=== PATIENT | female | born 1995 | race Caucasian/White ===

== ENCOUNTER 2021-11-30 18:28 | Emergency (ER) | payer OTHER ==
--- NOTE | 2021-11-30 18:50 | NUR ---
CALLED TO TRIAGE, NO ANSWER
--- NOTE | 2021-11-30 20:19 | NUR ---
CALLED TO TRIAGE NO ANSWER.
== END 2021-11-30 20:19 | disposition left against medical advice (07) ==
LOC: MED 18:28
DX: Z53.21 Procedure and treatment not carried out due to patient leaving prior to being seen by health care provider (principal)

== ENCOUNTER 2021-12-18 19:19 | Emergency (ER) | payer OTHER ==
[~2021-12-18] VITALS: Ht 160 cm; Wt 93.9 kg
[2021-12-18 19:35] VITALS: BP 131/90
--- NOTE | 2021-12-18 19:40 | NUR ---
PATIENT TO LOBBY
--- NOTE | 2021-12-18 19:40 | NUR ---
JENNIFER Mitchell examined patient.
[2021-12-18] MEDS ORDERED: ACETAMINOPHEN 325 MG TAB PO ONE (19:45)
[2021-12-18] MEDS ORDERED: OFLO10SO16 OT ×2 (19:47→19:48)
[2021-12-18] MEDS ORDERED: ACET-8386 PO ×2 (19:47→19:48)
[2021-12-18] MEDS ORDERED: AZIT250T3 PO ×2 (19:47→19:48)
--- NOTE | 2021-12-18 20:11 | NUR ---
Note undone in EDM - 12/18/21 at 2013 by MEDANGIE Patient discharged with v/s stable. Written and verbal after care instructions given and explained. Patient alert, oriented and verbalized understanding of instructions. Ambulatory with steady gait. All questions addressed prior to discharge. ID band removed. Patient advised to follow up with PMD. Rx of hydrocodon acetaminophen 5-325, zithromac, and ofloxacin 10 ml given. Patient educated on indication of medication including possible reaction and side effects. Opportunity to ask questions provided and answered.
--- NOTE | 2021-12-18 20:11 | NUR ---
Patient discharged with v/s stable. Written and verbal after care instructions given and explained. Patient alert, oriented and verbalized understanding of instructions. Ambulatory with steady gait. All questions addressed prior to discharge. ID band removed. Patient advised to follow up with PMD. Rx of hydrocodon acetaminophen 5-325, zithromax, and ofloxacin 10 ml given. Patient educated on indication of medication including possible reaction and side effects. Opportunity to ask questions provided and answered.
[2021-12-18 20:12] VITALS: BP 131/90
== END 2021-12-18 20:11 | disposition home or self-care (01) ==
LOC: MED 19:19
DX: H66.91 Otitis media, unspecified, right ear (principal); Z88.0 Allergy status to penicillin
CPT/HCPCS: 99283

== ENCOUNTER 2022-02-09 07:54 | Emergency (ER) | payer OTHER ==
[~2022-02-09] VITALS: Ht 160 cm; Wt 93.0 kg
[~2022-02-09 07:54] MED LIST: ACET-8386 PO; AZIT250T3 PO; OFLO10SO16 OT
[2022-02-09 08:03] VITALS: BP 158/95
--- NOTE | 2022-02-09 08:07 | NUR ---
Patient ambulated with steady gait to bed 5.
--- NOTE | 2022-02-09 08:14 | NUR ---
26 y/o F BIB self from home c/o chest pain since 0200. Patient A&Ox4, ambulatory, states acute onset; states smoking marijuana prior to arrival. Reports 8/10, sharp/constant, non-radiating pain. +Tenderness to sub sternal region. Worsens with inspiration. Denies medications prior to arrival. Reports sick household members (children with congestion). Denies SOB, headache, leg pain, nausea, vomiting, diarrhea, fever, chills. Bed locked in lowest position, side rails x 1. PMH/Sx/Meds: von willebrand disease A: PCN
--- NOTE | 2022-02-09 08:14 | NUR ---
Dr. Amor is evaluating pt at bedside
[2022-02-09] MEDS ORDERED: KETOROLAC 30 MG/ML VIAL IM ONE (08:20)
[2022-02-09] MEDS ORDERED: NAPR-54 PO (09:02)
--- NOTE | 2022-02-09 09:03 | NUR ---
Pt reports + relief to pain; 5/10 at this time.
--- NOTE | 2022-02-09 09:06 | NUR ---
Patient discharged with v/s stable. Written and verbal after care instructions given and explained for Chest Wall Pain. Patient alert, oriented and verbalized understanding of instructions. Ambulatory with steady gait. All questions addressed prior to discharge. ID band removed. Patient advised to follow up with PMD. Rx of Naproxyn given. Patient educated on indication of medication including possible reaction and side effects. Opportunity to ask questions provided and answered.
== END 2022-02-09 09:06 | disposition home or self-care (01) ==
LOC: MED 07:54
DX: R07.89 Other chest pain (principal); R05.9 Cough, unspecified; F12.90 Cannabis use, unspecified, uncomplicated; Z79.899 Other long term (current) drug therapy; Z88.0 Allergy status to penicillin
CPT/HCPCS: 71045; 81002; 81025; 96372; 99283; J1885; Q0092; 93005

== ENCOUNTER 2022-04-21 08:14 | Emergency (ER) | payer OTHER ==
[~2022-04-21] VITALS: Ht 160 cm; Wt 92.1 kg
[~2022-04-21 08:14] MED LIST changes: +NAPR-54 PO
[2022-04-21 08:19] VITALS: BP 129/85
--- NOTE | 2022-04-21 08:26 | NUR ---
26 Y/O FEMALE C/O N/V/D X 2 DAYS. PT WOKE UP WITH A COUGH THIS AM. PT STATES SHE NOTICED A "WHITE SPOT" ON HER TONSIL. PT DENIES CHEST PAIN, SOB. LUNGS CTA. PT PLACED ON MONITOR. BED LOCKED IN LOWEST POSITION. BED RAIL X1. PMH: DENIES NKA
--- NOTE | 2022-04-21 08:34 | NUR ---
AT PT BEDSIDE
[2022-04-21] MEDS ORDERED: ACETAMIN/CODEINE 120/12MG-5ML 5 ML UDC PO ONE (08:45)
--- NOTE | 2022-04-21 09:01 | NUR ---
XR AT PT BEDSIDE
--- NOTE | 2022-04-21 09:01 | NUR ---
HERIBERTO CAROLE/ FLU SWABS WALKED TO LAB
[2022-04-21] MEDS ORDERED: ONDA-188 PO (10:30)
[2022-04-21] MEDS ORDERED: ROBAC PO (10:30)
[2022-04-21 10:46] VITALS: BP 124/93
--- NOTE | 2022-04-21 10:47 | NUR ---
Patient discharged with v/s stable. Written and verbal after care instructions given and explained. Patient alert, oriented and verbalized understanding of instructions. Ambulatory with steady gait. All questions addressed prior to discharge. ID band removed. Patient advised to follow up with PMD. Rx of ZOFRAN ODT / GUAIFENESIN-CODEINE SYRUP given. Patient educated on indication of medication including possible reaction and side effects. Opportunity to ask questions provided and answered.
== END 2022-04-21 10:47 | disposition home or self-care (01) ==
LOC: MED 08:14
DX: J06.9 Acute upper respiratory infection, unspecified (principal); F12.90 Cannabis use, unspecified, uncomplicated; Z20.822 Contact with and (suspected) exposure to COVID-19; Z88.0 Allergy status to penicillin; Z98.890 Other specified postprocedural states
CPT/HCPCS: 71045; 99284

== ENCOUNTER 2022-05-16 19:43 | Emergency (ER) | payer OTHER ==
[~2022-05-16] VITALS: Ht 160 cm; Wt 92.1 kg
[~2022-05-16 19:43] MED LIST changes: +ONDA-188 PO; +ROBAC PO
[2022-05-16 19:58] VITALS: BP 141/90
--- NOTE | 2022-05-16 20:05 | NUR ---
Patient ambulated to bed 9.
--- NOTE | 2022-05-16 20:08 | NUR ---
C/O cough x today. Patient reported, woke up with cough this morning, chest discomfort.
--- NOTE | 2022-05-16 20:10 | NUR ---
COVID SWAB OBTAINED AND SENT TO LAB
[2022-05-16] MEDS ORDERED: BPM/473S78 PO (20:14)
[2022-05-16] MEDS ORDERED: ACET-10509 PO (20:14)
--- NOTE | 2022-05-16 20:16 | NUR ---
RADIOLOGY AT BESIDE.
--- NOTE | 2022-05-16 20:19 | NUR ---
xray at bedside
[2022-05-16 20:47] VITALS: BP 141/90
== END 2022-05-16 20:40 | disposition home or self-care (01) ==
LOC: MED 19:43
DX: B34.9 Viral infection, unspecified (principal); Z20.822 Contact with and (suspected) exposure to COVID-19; R05.9 Cough, unspecified
CPT/HCPCS: 71045; 99284

== ENCOUNTER 2022-06-29 06:04 | Emergency (ER) | payer OTHER ==
[~2022-06-29] VITALS: Ht 160 cm; Wt 93.0 kg
[~2022-06-29 06:04] MED LIST changes: +ACET-10509 PO; +BPM/473S78 PO
[2022-06-29 06:09] VITALS: BP 128/87
--- NOTE | 2022-06-29 06:09 | NUR ---
to bed ambulatory
--- NOTE | 2022-06-29 06:21 | NUR ---
27 y/o female bibs from home, c/o abd pain with left flank pain x4hrs. pt states she awoke with the pain and diarrhea. denies n/v, cough, fever, cp, or sob. skin is pink/dry/warm. a/ox4, gcs-15; ambulatory w/o assistance; unlabored breathing, speaking in full sentences. all: emilyn salvador: stefan manning
--- NOTE | 2022-06-29 06:52 | NUR ---
Dr. Amor examining patient.
[2022-06-29] MEDS ORDERED: NACL 0.9% 1,000 ML IV ONE (06:55)
[2022-06-29] MEDS ORDERED: MORPHINE SULFATE 4 MG/ML SYR IVP ONE (06:55)
[2022-06-29] MEDS ORDERED: ONDANSETRON 4 MG/2 ML VIAL IVP ONE (06:55)
--- NOTE | 2022-06-29 07:09 | NUR ---
transfer of care report given to gavino rivas.
--- NOTE | 2022-06-29 07:10 | NUR ---
morphine and zofran pulled from [facility] and given to gavino rivas for administration.
[2022-06-29 07:35] LABS: BASOPHILS # (AUTO) 0.1 K/uL (0.00-0.22); BASOPHILS % (AUTO) 1.3 % (0.0-2.0); EOSINOPHILS # (AUTO) 0.3 K/uL (0-0.4); EOSINOPHILS % (AUTO) 5.1 % (0.0-4.0); HEMATOCRIT 35.7 % (36-48); HEMOGLOBIN 11.6 g/dL (12.0-16.0); LYMPHOCYTES # (AUTO) 1.8 K/uL (2.5-16.5); LYMPHOCYTES % (AUTO) 30.9 % (20.5-51.1); MEAN CORPUSCULAR HEMOGLOBIN 27 pg (27-31); MEAN CORPUSCULAR HGB CONC 33 g/dL (33-37); MEAN CORPUSCULAR VOLUME 82.3 fL (80-94); MONOCYTES # (AUTO) 0.2 K/uL (0.8-1.0); MONOCYTES % (AUTO) 3.6 % (1.7-9.3); NEUTROPHILS # (AUTO) 3.4 K/uL (1.8-7.7); NEUTROPHILS % (AUTO) 59.1 % (42.2-75.2); PLATELET COUNT (AUTO) 301 K/uL (140-450); RED BLOOD CELL COUNT(AUTO) 4.34 MIL/uL (4.20-5.40); RED CELL DISTRIBUTION WIDTH 14.4 % (11.6-13.7); WHITE BLOOD COUNT (AUTO) 5.7 K/uL (4.8-10.8)
--- NOTE | 2022-06-29 07:40 | NUR ---
PT BACK FROM CT
--- NOTE | 2022-06-29 07:50 | NUR ---
STATES PAIN 4/10 AND TOLERABLE
[2022-06-29 07:51] VITALS: BP 124/75
[2022-06-29 07:52] LABS: APPEARANCE,URINE CLEAR (CLEAR); BILIRUBIN,URINE NEGATIVE (NEGATIVE); BLOOD, URINE 3+ (NEGATIVE); COLOR,URINE YELLOW (YELLOW); LEUKOCYTE ESTERASE ,URINE NEGATIVE (NEGATIVE); NITRITE, URINE NEGATIVE (NEGATIVE); UGLUCOSE NEGATIVE (NEGATIVE)
[2022-06-29 07:59] LABS: ALBUMIN 3.7 g/dL (3.4-5.0); CARBON DIOXIDE 24.7 mmol/L (21-32); CREATININE 0.6 mg/dL (0.6-1.3); POTASSIUM 3.7 mmol/L (3.5-5.1); TOTAL BILIRUBIN 0.2 mg/dL (0.0-1.0)
[2022-06-29 08:24] LABS: RBC,URINE 50-80 /HPF (0-5); WBC,URINE 0-5 /HPF (0-5)
[2022-06-29] MEDS ORDERED: HYDROcodone/APAP 5/325 MG 1 TAB TAB PO ONE (08:25)
[2022-06-29] MEDS ORDERED: DICYCLOMINE 20 MG/2 ML VIAL IM ONE (08:25)
[2022-06-29] MEDS ORDERED: NAPR-54 PO (09:02)
[2022-06-29] MEDS ORDERED: ACET-8386 PO (09:02)
--- NOTE | 2022-06-29 09:28 | NUR ---
Patient discharged with v/s stable. Written and verbal after care instructions given and explained. Patient alert, oriented and verbalized understanding of instructions. Ambulatory with steady gait. All questions addressed prior to discharge. ID band removed. Patient advised to follow up with PMD. Rx of NAPROXEN AND NORCO given. Patient educated on indication of medication including possible reaction and side effects. Opportunity to ask questions provided and answered.
== END 2022-06-29 09:28 | disposition home or self-care (01) ==
LOC: MED 06:04
DX: R19.7 Diarrhea, unspecified (principal); R10.9 Unspecified abdominal pain; F12.90 Cannabis use, unspecified, uncomplicated; Z88.0 Allergy status to penicillin; Z79.899 Other long term (current) drug therapy; Z98.890 Other specified postprocedural states
CPT/HCPCS: 36415; 74176; 80053; 81001; 81025; 83690; 85025; 87086; 96361; 96372; 96374; 96375; 99285; J0500; J2270; J2405; J7030

== ENCOUNTER 2022-07-25 15:02 | Emergency (ER) | payer OTHER ==
[~2022-07-25] VITALS: Ht 160 cm; Wt 91.7 kg
--- NOTE | 2022-07-25 15:21 | NUR ---
ATTEMPTED TO TRIAGE PT, NO ANSWER IN LOBBY/OUTSIDE
[2022-07-25 15:39] VITALS: BP 145/94
--- NOTE | 2022-07-25 15:52 | NUR ---
COVID/FLU SAMPLES COLLECTED AND WALKED TO LAB.
--- NOTE | 2022-07-25 16:30 | NUR ---
27/F PRESENTS TO ED WITH C/O LEFT EAR PAIN X2 DAYS. PATIENT ALSO C/O SINUS CONGESTION/RUNNY NOSE, MILD COUGH, HEADACHE, BODY ACHES AND SORE THROAT X1 WEEK. REPORTS HER KIDS ARE SICK AT HOME WITH SIMILAR SYMPTOMS. PATIENT DENIES FEVER/CHILLS.
[2022-07-25] MEDS ORDERED: SUD30 PO (16:57)
[2022-07-25] MEDS ORDERED: ACETAMINOPHEN EXTRA STRENGTH 500 MG TAB PO ONE (17:05)
[2022-07-25 17:17] VITALS: BP 137/97
--- NOTE | 2022-07-25 17:17 | NUR ---
Patient discharged with v/s stable. Written and verbal after care instructions ABOUT URI, SINUSITIS given and explained. Patient alert, oriented and verbalized understanding of instructions. Ambulatory with steady gait. All questions addressed prior to discharge. ID band removed. Patient advised to follow up with PMD. Rx of SUDAFED given. Patient educated on indication of medication including possible reaction and side effects. Opportunity to ask questions provided and answered.
== END 2022-07-25 17:17 | disposition home or self-care (01) ==
LOC: MED 15:02
DX: J06.9 Acute upper respiratory infection, unspecified (principal); Z20.822 Contact with and (suspected) exposure to COVID-19; J01.90 Acute sinusitis, unspecified; D68.0 Von Willebrand disease; Z88.0 Allergy status to penicillin; Z79.899 Other long term (current) drug therapy
CPT/HCPCS: 99283

== ENCOUNTER 2022-08-28 07:59 | Emergency (ER) | payer OTHER ==
[~2022-08-28] VITALS: Ht 160 cm; Wt 92.3 kg
[~2022-08-28 07:59] MED LIST changes: +SUD30 PO
[2022-08-28 08:01] VITALS: BP 172/100
--- NOTE | 2022-08-28 08:09 | NUR ---
PATIENT AMBULATED TO BED 6.
--- NOTE | 2022-08-28 08:27 | NUR ---
Dr. Willis evaluating patient at bedside.
[2022-08-28] MEDS ORDERED: NACL 0.9% 1,000 ML IV SCH (08:35)
[2022-08-28] MEDS ORDERED: KETOROLAC 30 MG/ML VIAL IVP ONE (08:35)
[2022-08-28 08:55] LABS: HEMATOCRIT 35.6 % (36-48); HEMOGLOBIN 11.6 g/dL (12.0-16.0); MEAN CORPUSCULAR HEMOGLOBIN 27 pg (27-31); MEAN CORPUSCULAR HGB CONC 33 g/dL (33-37); MEAN CORPUSCULAR VOLUME 82.5 fL (80-94); PLATELET COUNT (AUTO) 309 K/uL (140-450); RED BLOOD CELL COUNT(AUTO) 4.31 MIL/uL (4.20-5.40); RED CELL DISTRIBUTION WIDTH 13.9 % (11.6-13.7); WHITE BLOOD COUNT (AUTO) 6.1 K/uL (4.8-10.8)
--- NOTE | 2022-08-28 08:55 | NUR ---
Patient was taken to imaging via wheelchair.
[2022-08-28 08:58] LABS: APPEARANCE,URINE CLEAR (CLEAR); BILIRUBIN,URINE NEGATIVE (NEGATIVE); BLOOD, URINE 2+ (NEGATIVE); COLOR,URINE YELLOW (YELLOW); LEUKOCYTE ESTERASE ,URINE NEGATIVE (NEGATIVE); NITRITE, URINE NEGATIVE (NEGATIVE); UGLUCOSE NEGATIVE (NEGATIVE)
[2022-08-28 09:11] LABS: ALBUMIN 3.8 g/dL (3.4-5.0); ANION GAP 12.2 (8-16); CARBON DIOXIDE 25.5 mmol/L (21-32); CREATININE 0.6 mg/dL (0.6-1.3); POTASSIUM 3.7 mmol/L (3.5-5.1); TOTAL BILIRUBIN 0.3 mg/dL (0.0-1.0)
[2022-08-28 09:18] LABS: OTHER CASTS, URINE None Seen /LPF (None Seen); WBC,URINE 0-5 /HPF (0-5)
[2022-08-28 09:20] LABS: EOSINOPHILS % (MANUAL) 6 % (0-4); LYMPHOCYTES % (MANUAL) 29 % (20-46); MONOCYTES % (MANUAL) 6 % (5-12)
[2022-08-28] MEDS ORDERED: MORPHINE SULFATE 4 MG/ML SYR IVP ONE (09:20)
--- NOTE | 2022-08-28 10:08 | NUR ---
Dr. Willis re-evaluating patient at bedside.
[2022-08-28] MEDS ORDERED: CIPR500T4 PO (10:11)
[2022-08-28] MEDS ORDERED: IBUP-2213 PO (10:11)
[2022-08-28] MEDS ORDERED: ACET-8386 PO (10:11)
[2022-08-28 11:48] VITALS: BP 137/98
--- NOTE | 2022-08-28 11:48 | NUR ---
Patient discharged with v/s stable. Written and verbal after care instructions given. Patient alert, oriented and verbalized understanding of instructions. Ambulatory with steady gait. All questions addressed prior to discharge. ID band removed. Patient advised to follow up with PMD. Rx of Hydrocodone-Acetaminophen, Cipro and Ibuprofen given. Opportunity to ask questions provided and answered.
--- NOTE | 2022-08-28 12:08 | NUR ---
The patient's care was reviewed and supervised by ED Agency Nurse 9, RN, RN.
== END 2022-08-28 12:08 | disposition home or self-care (01) ==
LOC: MED 07:59
DX: R10.11 Right upper quadrant pain (principal)
CPT/HCPCS: 36415; 74176; 80053; 81001; 81025; 83690; 85025; 96361; 96374; 96375; 99284; J1885; J2270

== ENCOUNTER 2022-09-12 18:36 | Inpatient (IN) | payer OTHER ==
[~2022-09-12] VITALS: Ht 160 cm; Wt 92.1 kg
[~2022-09-12 18:36] MED LIST changes: +CIPR500T4 PO; +IBUP-2213 PO
[2022-09-12 19:59] VITALS: BP 113/75
[2022-09-12] MEDS ORDERED: ACETAMINOPHEN EXTRA STRENGTH 500 MG TAB PO ONE (20:55)
[2022-09-12] MEDS ORDERED: ONDANSETRON 4 MG/2 ML VIAL IVP ONE (20:55)
[2022-09-12] MEDS ORDERED: NACL 0.9% 2,000 ML IV ONE (20:55)
[2022-09-12 21:10] LABS: BASOPHILS % (AUTO) 0.4 % (0.0-2.0); EOSINOPHILS # (AUTO) 0.3 K/uL (0-0.4); EOSINOPHILS % (AUTO) 8.9 % (0.0-4.0); HEMATOCRIT 39.5 % (36-48); HEMOGLOBIN 12.9 g/dL (12.0-16.0); LYMPHOCYTES # (AUTO) 0.5 K/uL (2.5-16.5); LYMPHOCYTES % (AUTO) 17.5 % (20.5-51.1); MEAN CORPUSCULAR HEMOGLOBIN 27 pg (27-31); MEAN CORPUSCULAR HGB CONC 33 g/dL (33-37); MEAN CORPUSCULAR VOLUME 81.8 fL (80-94); MONOCYTES # (AUTO) 0.1 K/uL (0.8-1.0); MONOCYTES % (AUTO) 3.6 % (1.7-9.3); NEUTROPHILS # (AUTO) 2.2 K/uL (1.8-7.7); NEUTROPHILS % (AUTO) 69.6 % (42.2-75.2); PLATELET COUNT (AUTO) 192 K/uL (140-450); RED BLOOD CELL COUNT(AUTO) 4.83 MIL/uL (4.20-5.40); RED CELL DISTRIBUTION WIDTH 13.8 % (11.6-13.7); WHITE BLOOD COUNT (AUTO) 3.1 K/uL (4.8-10.8)
[2022-09-12] MEDS ORDERED: MORPHINE SULFATE 4 MG/ML SYR IVP ONE (22:05)
[2022-09-12 22:07] LABS: CARBON DIOXIDE 23.6 mmol/L (21-32); POTASSIUM 3.6 mmol/L (3.5-5.1); TOTAL BILIRUBIN 0.3 mg/dL (0.0-1.0)
[2022-09-12 22:08] LABS: ALBUMIN 3.9 g/dL (3.4-5.0)
[2022-09-12 23:53] LABS: APPEARANCE,URINE CLOUDY (CLEAR); BILIRUBIN,URINE 1+ (NEGATIVE); BLOOD, URINE 3+ (NEGATIVE); COLOR,URINE DARK YELLOW (YELLOW); LEUKOCYTE ESTERASE ,URINE NEGATIVE (NEGATIVE); NITRITE, URINE NEGATIVE (NEGATIVE); UGLUCOSE NEGATIVE (NEGATIVE)
[2022-09-13 00:02] LABS: RBC,URINE TOO NUMEROUS TO COUN /HPF (0-5); WBC,URINE 0-5 /HPF (0-5)
[2022-09-13] MEDS ORDERED: MORPHINE SULFATE 4 MG/ML SYR IVP ONE (01:10)
[2022-09-13] MEDS ORDERED: DICYCLOMINE 20 MG/2 ML VIAL IM ONE (04:30)
[2022-09-13] MEDS ORDERED: LEVOFLOXACIN 500 MG/D5W PREMIX 100 ML IV ONE (04:30)
[2022-09-13] MEDS ORDERED: ONDANSETRON 4 MG/2 ML VIAL ONE (05:18)
[2022-09-13] MEDS ORDERED: ONDANSETRON 4 MG/2 ML VIAL IVP ONE (05:45)
[2022-09-13] MEDS ORDERED: diphenhydrAMINE 50 MG/ML VIAL IVP ONE (05:55)
[2022-09-13] MEDS ORDERED: NACL 0.9% 1,000 ML IV SCH (06:20)
[2022-09-13] MEDS ORDERED: MORPHINE SULFATE 2 MG/ML SYR IVP PRN (06:20)
[2022-09-13] MEDS ORDERED: LORazepam 2 MG/ML VIAL IVP PRN (06:20)
[2022-09-13] MEDS ORDERED: HYDROcodone/APAP 5/325 MG 1 TAB TAB PO PRN (06:20)
[2022-09-13] MEDS ORDERED: LEVOFLOXACIN 500 MG/D5W PREMIX 100 ML IV SCH (06:20)
[2022-09-13] MEDS ORDERED: ONDANSETRON 4 MG/2 ML VIAL IVP PRN (06:20)
[2022-09-13] MEDS: ACETAMINOPHEN 325 MG TAB PO PRN ×2 (07:53→15:44)
[2022-09-13] MEDS ORDERED: ENOXAPARIN 40 MG/0.4 ML SYR SUBQ SCH (09:00)
[2022-09-13 12:00] VITALS: BP 111/69
[2022-09-14 10:03] LABS: CREATININE 0.9 mg/dL (0.6-1.3)
== END 2022-09-13 16:10 | disposition left against medical advice (07) | DRG 720 ==
LOC: MED 18:36 → MMU 09-13 06:24 → MTU 09-13 06:48
PROVIDERS: ADMIT Internal Medicine; ATTEND Internal Medicine
DX: A41.9 Sepsis, unspecified organism (principal); D68.00 Von Willebrand disease, unspecified; K76.0 Fatty (change of) liver, not elsewhere classified; N39.0 Urinary tract infection, site not specified; E66.9 Obesity, unspecified; Z20.822 Contact with and (suspected) exposure to COVID-19; R74.01 Elevation of levels of liver transaminase levels; F17.200 Nicotine dependence, unspecified, uncomplicated; Z68.30 Body mass index [BMI] 30.0-30.9, adult; Z88.0 Allergy status to penicillin; Z88.6 Allergy status to analgesic agent; Z88.8 Allergy status to other drugs, medicaments and biological substances; E87.1 Hypo-osmolality and hyponatremia
CPT/HCPCS: 36415; 71045; 76705; 80053; 81001; 83605; 85025; 87040; 87081; 87086; 96361; 96365; 96372; 96375; 96376; 99285; J0500; J0696; J1200; J1956; J2270; J2405; J7030; J7060; Q0092

== ENCOUNTER 2023-01-02 17:07 | Emergency (ER) | payer OTHER ==
[~2023-01-02] VITALS: Ht 160 cm; Wt 88.5 kg
[~2023-01-02 17:07] MED LIST changes: -ACET-8386 PO; -AZIT250T3 PO; -BPM/473S78 PO; -CIPR500T4 PO; -NAPR-54 PO; -OFLO10SO16 OT; -ONDA-188 PO; -ROBAC PO; -SUD30 PO
[2023-01-02 17:11] VITALS: BP 147/97
--- NOTE | 2023-01-02 17:40 | NUR ---
Pt to bed 03 at this time. Pt AOX4, able to make needs known. Resp even and unlabored. GCS15
[2023-01-02] MEDS ORDERED: DEXAMETHASONE 10 MG/ML VIAL PO ONE (18:10)
[2023-01-02] MEDS ORDERED: IBUP-2213 PO (18:12)
[2023-01-02] MEDS ORDERED: CEFU-18 PO (18:12)
[2023-01-02 18:24] VITALS: BP 140/85
--- NOTE | 2023-01-02 18:26 | NUR ---
Patient discharged with v/s stable. Written and verbal after care instructions given and explained. Patient alert, oriented and verbalized understanding of instructions. Ambulatory with steady gait. All questions addressed prior to discharge. ID band removed. Patient advised to follow up with PMD. Rx of ibuprofen/cefuroxime given. Patient educated on indication of medication including possible reaction and side effects. Opportunity to ask questions provided and answered.
== END 2023-01-02 18:24 | disposition home or self-care (01) ==
LOC: MED 17:07
DX: J02.8 Acute pharyngitis due to other specified organisms (principal); R03.0 Elevated blood-pressure reading, without diagnosis of hypertension; N20.0 Calculus of kidney; Z88.0 Allergy status to penicillin; Z79.82 Long term (current) use of aspirin
CPT/HCPCS: 99283; J1100

== ENCOUNTER 2023-11-07 06:54 | Emergency (ER) | payer OTHER ==
[~2023-11-07] VITALS: Ht 160 cm; Wt 88.9 kg
[~2023-11-07 06:54] MED LIST changes: +CEFU-18 PO
[2023-11-07 07:02] VITALS: BP 154/124; PULSE 109; RESP 24; TEMP 98.2; O2SAT 99
[2023-11-07] MEDS ORDERED: PRED20TA5 PO (07:43)
[2023-11-07] MEDS ORDERED: PSEU120T22 PO (07:43)
== END 2023-11-07 08:25 | disposition home or self-care (01) ==
LOC: MED 06:54
DX: J02.9 Acute pharyngitis, unspecified (principal); R05.9 Cough, unspecified; F12.90 Cannabis use, unspecified, uncomplicated; Z98.890 Other specified postprocedural states; Z79.899 Other long term (current) drug therapy; Z79.1 Long term (current) use of non-steroidal anti-inflammatories (NSAID); Z88.0 Allergy status to penicillin; Z88.6 Allergy status to analgesic agent
CPT/HCPCS: 99283